=== PATIENT | male | born 1985 | race Caucasian/White ===

== ENCOUNTER → 2019-08-11 02:42 | Emergency (ER) | payer OTHER ==
--- NOTE | 2019-08-11 02:54 | ED ---
HPI Chest Pain - HPI Summary HPI Summary: 34 year old F arriving via private car complains of right sided chest pain rated 4/10 in severity since 0200 today 08/11/2019. The patient states the pain feels like a pulled muscle. Patient states he had to leave work early at 0900 yesterday 08/10/2019 because he was having flu-like symptoms. He went home, rested, and felt better around 1700 yesterday 08/10. He went to bed and woke up at 0200 today with chest pain. Patient denies shortness of breath, cough, fever, chills, nausea, diarrhea, abdominal pain, decreased appetite, dysuria, headache. Symptoms aggravated by nothing. Symptoms alleviated by nothing. Medications reviewed. Allergies reviewed. He admits to drinking ETOH 7 hours ago. - History of Current Complaint Chief Complaint: EDChestPainROMI Time Seen by Provider: 08/11/19 02:48 Hx Obtained From: Patient Onset/Duration: Started Hours Ago - 1, Still Present Timing: Constant Current Severity: Moderate Pain Intensity: 4 Pain Scale Used: 0-10 Numeric Character: Other: - pulled muscle Aggravating Factor(s): Nothing Alleviating Factor(s): Nothing Associated Signs and Symptoms: Positive: Negative - shortness of breath, cough, fever, chills, nausea, diarrhea, abdominal pain, decreased appetite, dysuria, headache PMH/Surg Hx/FS Hx/Imm Hx Endocrine/Hematology History: Denies: Hx Diabetes Cardiovascular History: Denies: Hx Hypertension - Surgical History Surgery Procedure, Year, and Place: denies Infectious Disease History: No Infectious Disease History: Denies: Traveled Outside the [place] in Last 30 Days - Family History Known Family History: Positive: Hypertension Negative: Cardiac Disease - Social History Alcohol Use: Occasionally Substance Use Type: Reports: None Hx Tobacco Use: No Smoking Status (MU): Never Smoked Tobacco Review of Systems Negative: Fever, Chills Positive: Chest Pain Negative: Shortness Of Breath, Cough Gastrointestinal: Negative - decreased appetite Negative: Abdominal Pain, Diarrhea, Nausea Negative: dysuria Negative: Headache All Other Systems Reviewed And Are Negative: Yes Physical Exam - Summary Physical Exam Summary: General: Very tall, thin MALE. No acute distress. HEENT: Normocephalic, Atraumatic. Eyes: Conjuctiva normal, PERRL. Oropharynx: Clear, mucous membranes moist, (-) exudates. Neck: Soft, FROM, (-) lymphadenopathy, (-) thyromegaly, (-) JVD. Chest: No tenderness to palpation right of the sternum Cardiovascular: Normal sinus rhythm, (-) murmur. Lungs: Clear to auscultation bilaterally (-) wheezes, (-) rales, (-) rhonchi. Abdomen: Soft, non-tender, non-distended, (-) organomegaly, normal bowel sounds. Back: (-) CVA tenderness Extremities: No edema. Skin: Warm, dry, (-) rash. Neuro: Alert and oriented x3, moves all extremities equally. No ataxia. No gait disturbance. No sensory deficit. Normal strength, normal sensation. Psychiatric: Mood normal, affect normal. Triage Information Reviewed: Yes Vital Signs On Initial Exam: Initial Vitals Temp Pulse Resp BP Pulse Ox 98.2 F 52 16 149/94 99 08/11/19 02:45 08/11/19 02:45 08/11/19 02:45 08/11/19 02:45 08/11/19 02:45 Vital Signs Reviewed: Yes Procedures - Sedation Patient Received Moderate/Deep Sedation with Procedure: No Diagnostics - Vital Signs Vital Signs Temp Pulse Resp BP Pulse Ox 08/11/19 02:45 98.2 F 52 16 149/94 99 - Laboratory Result Diagrams: 08/11/19 03:00 08/11/19 03:00 Lab Statement: Any lab studies that have been ordered have been reviewed, and results considered in the medical decision making process. - Radiology CXR Radiology Interpretation Completed By: ED Physician - No infiltrate. No pleural effusion. Pending official report. - EKG 0243 Cardiac Rate: Bradycardia - 55 BPM EKG Rhythm: Sinus Bradycardia Summary of EKG Findings: EKG at 0243 reveals normal sinus bradycardia with rate of 55 BPM, no acute changes, no ischemic changes. This EKG was reviewed and interpreted by Dr. Villanueva. Re-Evaluation - Re-Evaluation First Eval Re-Evaluation Time: 04:21 Change: Improved Comment: I have discussed results with the patient and chest pain is resolved. Discussed symptoms that warrant immediate return to ED. Chest Pain Course/Dx - Course Course Of Treatment: 34-year-old male presents from home with chest pain. He states thatHe awoke about 2:00 with chest pain. He had felt poorly yesterday morning. Kind of flulike. He went home from work early and rested most of the day. He says he was feeling better in the evening. But was mostly relaxed without any significant activity. Awoke at 2:00 with pain to the right of his sternum. Denies any shortness of breath. No diaphoresis. No nausea. No history of heart problems. No family history. On physical exam he has no tenderness in the area. No significant physical findings. Workup demonstrates negative chest x-ray, negative troponin. Patient discharged home with . Follow-up with PCP. Follow up sooner for any worsening symptoms. - Diagnoses Provider Diagnoses: Chest pain Discharge ED - Sign-Out/Discharge Documenting (check all that apply): Patient Departure - Discharge Plan Condition: Stable Disposition: HOME Patient Education Materials: Chest Pain (ED) Referrals: [facility] [Outside] - 3 Days Additional Instructions: Follow up with [facility] in 3 days. Return to the Emergency Department for changing or worsening symptoms. - Billing Disposition and Condition Condition: STABLE Disposition: Home - Attestation Statements Document Initiated by Scribe: Yes Documenting Scribe: Tatiana Gomez Provider For Whom [employer] is Documenting (Include Credential): Gem Villanueva MD Scribe Attestation: I, Tatiana Gomez, scribed for Gem Villanueva MD on 08/11/19 at 0532. Scribe Documentation Reviewed: Yes Provider Attestation: The documentation as recorded by the stoneibeTatiana accurately reflects the service I personally performed and the decisions made by me, Gem Villanueva MD Status of Scribe Document: Viewed
[2019-08-11 03:46] LABS: ABS Eosinophils 0.3 10^3/ul (0-0.6); ABS Lymphocytes 3.3 10^3/ul (1.0-4.8); ABS Monocytes 0.7 10^3/ul (0-0.8); ABS Neutrophils 3.3 10^3/ul (1.5-7.7); Eosinophil % 3.4 %; Hematocrit 44 % (42-52); Hemoglobin 15.6 g/dL (14.0-18.0); Lymphocyte % 43.6 %; Mean Corpuscular HGB Conc 35 g/dL (31-36); Mean Corpuscular Hemoglobin 33 pg (27-31); Mean Corpuscular Volume 92 fL (80-94); Mean Platelet Volume 8.5 fL (7.4-10.4); Nucleated Red Blood Cells % 0.1; Platelet Count 292 10^3/uL (150-450); Red Cell Distribution Width 13 % (10-15); White Blood Count 7.6 10^3/uL (3.5-10.8)
[2019-08-11 03:49] LABS: Activated Partial Thrombo Time 33.7 seconds (26.0-38.0)
[2019-08-11 03:57] LABS: Albumin/Globulin Ratio 1.9 (1-3); BUN/Creatinine Ratio 10.2 (8-20); Calcium 9.6 mg/dL (8.6-10.3); EGFR African American 106.6 (>60); EGFR Non-African American 88.1 (>60); Globulin 2.6 g/dL (2-4); Total Bilirubin 0.3 mg/dL (0.2-1.0); Total Protein 7.6 g/dL (6.4-8.9)
[2019-08-11 04:32] VITALS: BP 130/72
[2019-08-11 04:44] LABS: Potassium 3.8 mmol/L (3.5-5.0)
[2019-08-11 04:45] LABS: Urine Appearance Clear; Urine Bilirubin Negative (Negative); Urine Blood Negative (Negative); Urine Color Yellow; Urine Glucose Negative (Negative); Urine Ketones Trace (Negative); Urine Nitrite Negative (Negative); Urine Protein Negative (Negative); Urine Specific Gravity 1.017 (1.010-1.030); Urine Urobilinogen Negative (Negative)
== END | disposition home or self-care (01) ==
LOC: ED 02:42
DX: R07.9 Chest pain, unspecified (principal)
CPT/HCPCS: 36415; 71045; 80053; 80320; 81003; 83605; 84484; 85025; 85379; 85730; 93005; 99283; G0480